=== PATIENT | male | born 1990 | race Two or more races ===

== ENCOUNTER 2021-09-25 08:38 | Outpatient (REF) | payer OTHER, SELFPAY ==
[2021-09-25 08:56] LABS: MANUAL DIFF FLAG NO
[2021-09-25 09:58] LABS: Basophils Percent Auto 0.5 % (0-2); Eosinophils Absolute Auto 0.2 X10*3/uL (0.0-0.4); Eosinophils Percent Auto 2.4 % (0-4); Hematocrit 43.7 % (42.0-52.0); Hemoglobin 14.5 g/dl (14.0-18.0); Imm Gran Abs Auto 0.04 X10*3/uL (0.00-0.03); Imm Gran Pct Auto 0.5 % (0.0-0.4); Lymphocytes Absolute Auto 3.5 X10*3/uL (1.2-4.9); Lymphocytes Percent Auto 44.5 % (20-40); Mean Corpuscular HGB Conc 33.2 g/dl (31.0-36.0); Mean Corpuscular Hemoglobin 30.3 pg (27.0-33.0); Mean Corpuscular Volume 91.4 fL (80.0-98.0); Mean Platelet Volume 9.8 fL (9.4-12.4); Monocytes Absolute Auto 0.7 X10*3/uL (0.1-1.2); Monocytes Percent Auto 9.4 % (2-11); Neutrophils Absolute Auto 3.4 x10*3/uL (2.0-8.3); Neutrophils Percent Auto 42.7 % (45-73); Platelet Count 239 X10*3/uL (160-400); Red Blood Count 4.78 X10*6/uL (4.60-5.80); Red Cell Distribution Width 11.9 % (11.0-16.0); White Blood Count 7.9 X10*3/uL (4.8-10.8)
[2021-09-25 10:34] LABS: Alanine Aminotransferase 54 U/L (0-40); Albumin Level 4.2 g/dL (3.5-5.0); Alkaline Phosphatase 114 U/L (39-117); Anion Gap 11 (12-20); Aspartate Amino Transferase 25 U/L (5-37); Bilirubin Total < 0.2 mg/dL (0.0-1.0); Blood Urea Nitrogen 19 mg/dL (9-16); Calcium 9.2 mg/dL (8.4-10.2); Carbon Dioxide 27 mmol/L (22-29); Chloride 108 mmol/L (96-108); Cholesterol 149 mg/dL; Estimated Glomerular Filt Rate > 60; Glucose Fasting 100 mg/dL (60-99); HDL Cholesterol 28 mg/dL; LDL Cholesterol Calculated 95 mg/dl; Potassium 4.9 mmol/L (3.3-5.1); Sodium 141 mmol/L (135-145); Total Protein 7.3 g/dL (6.5-8.0); Triglycerides 131 mg/dL
[2021-09-25 10:39] LABS: Syphilis Screen Nonreactive (Nonreactive)
[2021-09-25 10:55] LABS: HIV AB/AG Nonreactive (Nonreactive); HIV Num 1 0.09 S/CO (0.00-0.99); ~HepC Num1 0.18 S/CO (0.00-0.79); ~Hepatitis C Antibody Nonreactive (Nonreactive)
[2021-09-25 12:48] LABS: CT PCR NOT DETECTED (Not Detect.); NG PCR NOT DETECTED (Not Detect.)
== END 2021-09-25 08:39 | disposition home or self-care (01) ==
LOC: HO.LAB 08:38
PROVIDERS: PCP Nurse Practitioner Family; Visit Provider Nurse Practitioner Family
DX: Z11.4 Encounter for screening for human immunodeficiency virus [HIV] (principal); Z11.3 Encounter for screening for infections with a predominantly sexual mode of transmission; I10 Essential (primary) hypertension; E78.00 Pure hypercholesterolemia, unspecified; Z76.89 Persons encountering health services in other specified circumstances
CPT/HCPCS: 80053; 80061; 85025; 86780; 86803; 87389; 87491; 87591

== ENCOUNTER 2023-04-26 07:24 | Outpatient (AMB) | payer BC, MEDICAID, SELFPAY ==
[2023-04-26 07:31] VITALS: BP 118/70; PULSE 78; O2SAT 98; BMI 26.6
--- NOTE | 2023-04-26 07:31 | MHC.PC.OV ---
Vital Signs 04/26/23 07:31 Height 5 ft 9 in Weight 180 lb BMI 26.6 BP 118/70 Blood Pressure Location Lt brachial Position Sitting Pulse 78 Pulse Source Pulse Oximeter Pulse Oximetry (%) 98 Oxygen Delivery Method Room Air Intake Visit Reasons: Physical exam Allergies No Known Allergies Allergy (Verified 04/26/23 07:44) Medication List - Last Reconciled 04/26/23 by CARMENCITA Epps No Known Home Meds Tobacco use date assessed: 04/26/23 Dental Screening Dental Screen Date: 04/26/23 Did you have a dental visit in the last 12 months?: Yes Did you have a dental problem in the last 6 months where you did not have access to dental care?: No Was dental information given to patient?: Patient has dentist HPI HPI Comments History of Present Illness Details 32-year-old male past medical history significant for fatty liver. Patient last seen August 2021, reports today for physical exam. She presents today with his assisted in interpretation. Patient's reports that he tested positive for Chlamydia and the beginning of February and was treated at [facility] for this. Patient was advised to follow-up for test for cure, test for cure ordered in April for 3months following treatment, in addition to routine STI screenings. Patient denies any acute complaints. Eye exam: Patient recommended to have eye exam every couple years. Tdap given in 2016 [facility] Surgical History History of pterygium History of wisdom tooth extraction Family History Father Hypertension Gout Kidney stones Hernia Mother Osteoarthritis Hypertension Family/Other Substance use disorder Social History Housing: Apartment Alcohol intake: never Patient Tobacco Use Status: Never used Tobacco e-Cigarette/Vaping Use: Never Used Second Hand Smoke Exposure: No service: No Current occupational status: employed Current occupational exposures/hazards: No Cognitive needs: No Hearing needs: No Vision needs: No Questionnaire PHQ-9 Over the last 2 weeks, how often have you been bothered by any of the following problems? 1. Little interest or pleasure in doing things: not at all 2. Feeling down, depressed, or hopeless: not at all 3. Trouble falling or staying asleep, or sleeping too much: not at all 4. Feeling tired or having little energy: not at all 5. Poor appetite or overeating: not at all 6. Feeling bad about yourself - or that you are a failure or have let yourself or your family down: not at all 7. Trouble concentrating on things, such as reading the newspaper or watching television: not at all 8. Moving or speaking so slowly that other people could have noticed. Or the opposite - being so fidgety or restless that you have been moving around a lot more than usual: not at all 9. Thoughts that you would be better off or of hurting yourself in some way: not at all Total score: 0 Depression Screening Interpretation: Negative Source: Developed by Drs. Casper García, Cassi Murdock, Berry Castaneda and colleagues, with an educational axel from [employer]. Thrive Questionnaire Date Thrive assessed: 04/26/23 I am a: Patient What is your living situation today?: I have a steady place to live Within the past 12 months, did the food you bought not last and you didn't have the money to get more?: Never true Within the past 12 months, did you worry whether your food would run out before you got money to buy more?: Never true Do you have trouble paying for medicines?: No Do you have trouble getting transportation to medical appointments?: No Do you have trouble paying your heating and electricity bill?: No Do you have trouble taking care of your child, family member or friend?: No Do you have trouble with day-to-day activities such as bathing, preparing meals, shopping, managing finances, etc.?: No Are you currently unemployed and looking for a job?: No Are you interested in more education?: No Currently or been in a relationship where the following occur: no concerns reported AUDIT C Alcohol Use Questionnaire (AUDIT-C) 1. How often do you have a drink containing alcohol?: Never Total Score: 0 PRETTY-7 AMB Questionnaire PRETTY-7 Date PRETTY - 7 assessed: 04/26/23 Feeling nervous, anxious, or on edge: 0 = Not at all Not being able to stop or control worryin = Not at all Worrying too much about different things: 0 = Not at all Trouble relaxin = Not at all Being so restless that it is hard to sit still: 0 = Not at all Becoming easily annoyed or irritable: 0 = Not at all Feeling afraid as if something awful might happen: 0 = Not at all Total PRETTY-7 score (0-4 normal; 5-9 mild; 10-14 moderate; 15-21 severe): 0 Source: Developed by Drs. Casper García, Cassi Murdock, Berry Castaneda and colleagues, with an educational axel from [employer]. PRETTY-7 Assessment Billing PRETTY-7 Assessment Tool: PRETTY-7 Assessment 63731 Review of Systems Const Denies chills, Denies fatigue, Denies fever(s) and Denies poor appetite Eyes Denies no additional complaints ENT Reports Normal hearing present Card Denies chest pain, Denies syncope, Denies rapid heart rate and Denies dyspnea Resp Denies cough and Denies dyspnea GI Denies change in stool character, Denies constipation, Denies diarrhea, Denies nausea and Denies vomiting Denies dysuria, Denies urinary frequency and Denies urinary urgency Neuro Reports Normal hearing present, Denies confusion and Denies syncope Psych Denies confusion Endo Denies fatigue Physical exam (Primary Care) Vital Signs: Last Vital Signs Pulse 78 04/26/23 07:31 BP 118/70 04/26/23 07:31 Pulse Ox 98 04/26/23 07:31 Oxygen Delivery Method Room Air 04/26/23 07:31 BMI result Body Mass Index 26.6 Tobacco/Smoking Status: Tobacco use Status Tobacco use date assessed 04/26/23 04/26/23 07:34 Patient Tobacco Use Status Never used Tobacco 04/26/23 07:34 e-Cigarette/Vaping Use Never Used 04/26/23 07:34 PHQ-9: PHQ-9 Score PHQ-9: Total score 0 04/26/23 07:43 Depression Screening Interpretation: Negative Thrive Assessment: Date of Thrive Assessment Date Thrive assessed 04/26/23 04/26/23 07:34 Currently or been in a relationship where the following occur: no concerns reported Const General: No confusion Orientation/consciousness: No confusion HENMT Head: Yes normocephalic and Yes atraumatic Ears: external ears normal and TM's normal bilaterally General nose exam: Normal external nose present and Normal nasal mucous membranes and turbinates present Face and sinus: Yes normal facial exam and Yes sinuses nontender Mouth: moist mucous membranes Throat: Yes tonsils normal Eyes Conjunctivae: conjunctivae normal Sclerae: sclerae normal Pupils: Equal, round and reactive pupils present and Pupils normal by confrontation EOM: EOMs intact bilaterally Direct Ophthalmoscopy: normal light reflex Neck Neck: Yes no lymphadenopathy and Yes supple Thyroid: Thyroid normal Chest Chest palpation & inspection: normal inspection of the chest Resp Effort & Inspection: normal respiratory effort Auscultation: clear to auscultation bilaterally, no crackles, no rhonchi and no wheezes Cardio Rate: regular rate Rhythm: regular rhythm Peripheral pulses: radial pulses present and dorsalis pedis present GI Inspection: Yes normal to inspection Palpation (GI): Soft to palpation, nontender and No hepatosplenomegaly present Auscultation: normoactive bowel sounds Skin General skin exam: no rashes or lesions noted Neuro General: No confusion Cranial nerves: Yes Equal, round and reactive pupils present and Yes Normal hearing present Cognition (Neuro): normal cognition Gait exam (Neuro): Normal gait present Motor exam (neuro): 5/5 motor strength present throughout Deep tendon reflexes (DTR's): Right brachioradialis reflex intensity grade: 2+, Left brachioradialis reflex intensity grade: 2+, Right patellar reflex intensity grade: 2+ and Left patellar reflex intensity grade: 2+ Extrem General: No edema Assessment and Plan Assessment & Plan (1) Physical exam, annual: Code(s): Z00.00 - Encounter for general adult medical examination without abnormal findings Plan: Routine fasting labs ordered. (2) Chlamydia contact, treated: Code(s): Z20.2 - Contact with and (suspected) exposure to infections with a predominantly sexual mode of transmission Plan: Patient advised to get labs for test for care in April. (3) Routine screening for STI (sexually transmitted infection): Code(s): Z11.3 - Encounter for screening for infections with a predominantly sexual mode of transmission Plan Follow up in 1 year for PE or sooner if needed. Orders: Orders Comprehensive [place]. Panel Fast Today Z13.1 - Encounter for screening for diabetes mellitus Lipid Panel Today Z13.220 - Encounter for screening for lipoid disorders TSH reflex Free T4 Today Z13.29 - Encounter for screening for other suspected endocrine disorder Hepatitis B,C Profile Today Z11.3 - Encounter for screening for infections with a predominantly sexual mode of transmission HIV Ab/Ag Today Z11.3 - Encounter for screening for infections with a predominantly sexual mode of transmission Syphilis Screen Today Z11.3 - Encounter for screening for infections with a predominantly sexual mode of transmission CT NG by PCR Today Z20.2 - Contact with and (suspected) exposure to infections with a predominantly sexual mode of transmission Coding Level of Care Code Est Pt Prev Care 18-39y(82704) Diagnoses Physical exam, annual Z00.00 Chlamydia contact, treated Z20.2 Routine screening for STI (sexually transmitted infection) Z11.3 Additional Codes PRETTY-7 Assessment Billing - PRETTY-7 Assessment Tool: PRETTY-7 Assessment 14900 ([id number]) PHQ-9 - 72253 - PHQ-9 Billing: Y ([id number])
== END 2023-04-26 07:49 | disposition home or self-care (01) ==
PROVIDERS: PCP Nurse Practitioner Family; Visit Provider Nurse Practitioner Family
DX: Z00.00 Encounter for general adult medical examination without abnormal findings (principal); Z20.2 Contact with and (suspected) exposure to infections with a predominantly sexual mode of transmission; Z11.3 Encounter for screening for infections with a predominantly sexual mode of transmission
CPT/HCPCS: 99395

== ENCOUNTER 2024-07-15 15:54 | Outpatient (AMB) | payer BC, SELFPAY ==
[2024-07-15 15:56] VITALS: BP 122/80; PULSE 74; O2SAT 97; BMI 27.5
--- NOTE | 2024-07-15 15:56 | MHC.PC.OV ---
Vital Signs 07/15/24 15:56 Height 5 ft 9 in Weight 186 lb BMI 27.5 BP 122/80 Blood Pressure Location Lt brachial Position Sitting Pulse 74 Pulse Source Pulse Oximeter Pulse Oximetry (%) 97 Oxygen Delivery Method Room Air Intake Visit Reasons: TOS/ Annual physical Alumni Relations Officer Required: No Allergies No Known Allergies Allergy (Verified 07/15/24 16:05) Medication List - Last Reconciled 07/15/24 by Rachel Williamson PA-C No Known Home Meds Tobacco use date assessed: 07/15/24 Dental Screening Dental Screen Date: 07/15/24 Did you have a dental visit in the last 12 months?: No Did you have a dental problem in the last 6 months where you did not have access to dental care?: No HPI TOS/ Annual physical HPI Details 33-year-old male with past medical history of fatty liver disease last seen by nurse practitioner March 2023 coming in for annual exam. Patient presents today with his spouse who interprets for the duration of the visit. He would like to undergo STD testing and does have 1 concern today. Mentions having 2-3 warts above the genital area as well as burning with urination. The warts have been present for several months possibly years are not red or painful and are flesh-colored. The burning with urination began on Saturday. Denies any blood in the urine or fevers. [facility] Surgical History History of pterygium History of wisdom tooth extraction Family History (Updated 07/15/24 @ 16:06 by Rachel Williamson PA-C) Father Hypertension Gout Kidney stones Hernia Mother Osteoarthritis Hypertension Family/Other Substance use disorder Paternal Grandmother Cancer Social History Housing: Apartment Alcohol intake: never Patient Tobacco Use Status: Never used Tobacco e-Cigarette/Vaping Use: Never Used Second Hand Smoke Exposure: No service: No Current occupational status: employed Current occupational exposures/hazards: No Cognitive needs: No Hearing needs: No Vision needs: No Questionnaire PHQ-9 Over the last 2 weeks, how often have you been bothered by any of the following problems? 1. Little interest or pleasure in doing things: not at all 2. Feeling down, depressed, or hopeless: not at all 3. Trouble falling or staying asleep, or sleeping too much: not at all 4. Feeling tired or having little energy: not at all 5. Poor appetite or overeating: not at all 6. Feeling bad about yourself - or that you are a failure or have let yourself or your family down: not at all 7. Trouble concentrating on things, such as reading the newspaper or watching television: not at all 8. Moving or speaking so slowly that other people could have noticed. Or the opposite - being so fidgety or restless that you have been moving around a lot more than usual: not at all 9. Thoughts that you would be better off or of hurting yourself in some way: not at all Total score: 0 Depression Screening Interpretation: Negative Depression Screening Done: Yes Source: Developed by Drs. Casper García, Cassi Murdock, Berry Castaneda and colleagues, with an educational axel from [employer]. Thrive Questionnaire Date Thrive assessed: 07/14/24 I am a: Patient What is your living situation today?: I have a steady place to live Within the past 12 months, did the food you bought not last and you didn't have the money to get more?: Never true Within the past 12 months, did you worry whether your food would run out before you got money to buy more?: Never true Do you have trouble paying for medicines?: No Do you have trouble getting transportation to medical appointments?: No Do you have trouble paying your heating and electricity bill?: No Do you have trouble taking care of your child, family member or friend?: No Do you have trouble with day-to-day activities such as bathing, preparing meals, shopping, managing finances, etc.?: No Are you currently unemployed and looking for a job?: No Are you interested in more education?: No Please select the resources that you would like help with: None Currently or been in a relationship where the following occur: I choose not to answer THRIVE Score: 0 AUDIT C Alcohol Use Questionnaire (AUDIT-C) 1. How often do you have a drink containing alcohol?: Never 2. How many drinks containing alcohol do you have on a typical day when you are drinking?: 1 or 2 3. How often do you have six or more drinks on one occasion?: Never Total Score: 0 PRETTY-7 AMB Questionnaire PRETTY-7 Date PRETTY - 7 assessed: 07/15/24 Feeling nervous, anxious, or on edge: 0 = Not at all Not being able to stop or control worryin = Not at all Worrying too much about different things: 0 = Not at all Trouble relaxin = Not at all Being so restless that it is hard to sit still: 0 = Not at all Becoming easily annoyed or irritable: 0 = Not at all Feeling afraid as if something awful might happen: 0 = Not at all Total PRETTY-7 score (0-4 normal; 5-9 mild; 10-14 moderate; 15-21 severe): 0 Source: Developed by Drs. Casper García, Cassi Murdock, Berry Castaneda and colleagues, with an educational axel from [employer]. PRETTY-7 Assessment Billing PRETTY-7 Assessment Tool: PRETTY-7 Assessment 67944 Review of Systems Const Denies body aches, Denies fatigue, Denies fever(s), Denies frequent falls, Denies headache(s) and Denies weakness Eyes Reports no additional complaints and Denies change in vision ENT Denies dysphagia, Denies dizziness, Denies facial pain, Denies headache(s), Denies nasal congestion and Denies odynophagia Card Denies chest pain, Denies syncope, Denies irregular heart rhythm, Denies leg edema, Denies lightheadedness and Denies dyspnea Resp Denies cough and Denies dyspnea GI Denies abdominal pain, Denies constipation, Denies dysphagia, Denies dyspepsia, Denies diarrhea, Denies nausea, Denies odynophagia and Denies vomiting Denies hematuria, Reports dysuria, Reports urinary frequency and Denies urinary urgency Musc Denies back pain and Denies myalgias Skin/Breast Reports system reviewed and no additional complaints, except as documented Neuro Denies dizziness, Denies syncope, Denies frequent falls, Denies headache(s) and Denies weakness Psych Reports no additional complaints Endo Denies fatigue Physical exam (Primary Care) Vital Signs: Oxygen Delivery Method Room Air 07/15/24 15:56 Tobacco/Smoking Status: Tobacco use Status Tobacco use date assessed 04/26/23 04/26/23 07:34 Patient Tobacco Use Status Never used Tobacco 04/26/23 07:34 e-Cigarette/Vaping Use Never Used 04/26/23 07:34 Depression Screening Interpretation: Negative Thrive Assessment: Date of Thrive Assessment Date Thrive assessed 07/14/24 07/14/24 10:37 Currently or been in a relationship where the following occur: I choose not to answer Const General: cooperative, healthy appearing, comfortable and no acute distress Orientation/consciousness: patient oriented x3 HENMT Head: Yes normocephalic Ears: hearing grossly normal bilaterally, external ears normal, TM's normal bilaterally and EAC's normal General nose exam: Normal external nose present Face and sinus: Yes normal facial exam and Yes sinuses nontender Mouth: Normal oral and palatal mucosa present and tongue normal Throat: Yes posterior oropharynx normal Eyes General: appearance normal, both eyes and all related structures Conjunctivae: conjunctivae normal Pupils: Equal, round and reactive pupils present EOM: EOMs intact bilaterally and No Nystagmus present Neck Neck: Yes normal visual inspection, Yes full ROM and Yes no lymphadenopathy Chest Chest palpation & inspection: normal inspection of the chest Resp Effort & Inspection: normal respiratory effort Auscultation: clear to auscultation bilaterally, no crackles, no rales, no rhonchi, no wheezes and breath sounds present Cardio Rate: regular rate Rhythm: regular rhythm Peripheral pulses: radial pulses present and dorsalis pedis present GI Inspection: Yes normal to inspection and No Abdominal wall edema Palpation (GI): Soft to palpation, not firm and nontender Auscultation: normal bowel sounds Rectal Exam - Male: Yes deferred General: Yes no CVA tenderness Back/Spine/Pelvis Back: no CVA tenderness Skin Other: 4-5 small, round, flesh-colored lesions in the suprapubic area varying in size. Lesions do not appear infected and are not painful Neuro General: patient oriented x3 Cranial nerves: Yes Equal, round and reactive pupils present, Yes Midline tongue present, Yes Ability to bilaterally elevate shoulders present and No Nystagmus present Gait exam (Neuro): Normal gait present Extrem General: Yes normal to inspection, Yes full ROM, No no pedal edema and No edema Psych Speech and movement: Normal speech and movement present Affect: normal affect Insight: Good insight present (Psych) Judgement: Good judgement present (Psych) Coding Level of Care Code Est Pt Level 3 (03915) Est Pt Prev Care 18-39y(36778) Diagnoses LFT elevation R79.89 Annual physical exam Z00.00 Dysuria R30.0 Warts B07.9 Additional Codes PRETTY-7 Assessment Billing - PRETTY-7 Assessment Tool: PRETTY-7 Assessment 22396 ([id number]) Assessment & Plan Assessment & Plan (1) LFT elevation: Code(s): R79.89 - Other specified abnormal findings of blood chemistry Category: Medical Plan: LFTs elevated on last blood work ordered for updated blood work for further evaluation. If LFTs are elevated once again can consider abdominal ultrasound for further investigation. (2) Annual physical exam: Code(s): Z00.00 - Encounter for general adult medical examination without abnormal findings Category: Medical Plan: Patient is up-to-date on all recommended routine screenings and vaccinations for his age. Updated blood work ordered. Follow up in 1 year or sooner pending blood work results or if new problems arise. (3) Dysuria: Code(s): R30.0 - Dysuria Category: Medical Plan: Ordered for STD testing as well as urinalysis with culture for further evaluation. Advised to drink plenty of water. (4) Warts: Code(s): B07.9 - Viral wart, unspecified Category: Medical Plan: Patient has 4-5 warts in the suprapubic area that are not painful, do not bleed and are not red. He has tried [id number] remedies for this with some improvement. Referral placed for Dermatology for removal of the warts. Plan This note was constructed using voice recognition software. While every effort has been made to ensure accuracy and property management accountant, still areas may have been included sometimes these areas may affect the content or meeting of the given symptoms. Total time spent caring for the patient today was 30 minutes. This includes time spent before the visit reviewing the chart, time spent during the visit, and time spent after the visit and documentation. Orders: Orders Complete Blood Count Auto Diff Today Z00.00 - Encounter for general adult medical examination without abnormal findings Lipid Panel Today Z00.00 - Encounter for general adult medical examination without abnormal findings TSH reflex Free T4 Today Z00.00 - Encounter for general adult medical examination without abnormal findings Vitamin D 25-OH (D2 and D3) Today Z00.00 - Encounter for general adult medical examination without abnormal findings UA CC w/rflx Micro + Cult Today R30.0 - Dysuria, R35.89 - Other polyuria Comprehensive Met. Panel Today Z00.00 - Encounter for general adult medical examination without abnormal findings Vitamin B12 and Folate Today Z00.00 - Encounter for general adult medical examination without abnormal findings CT NG by PCR Today Z00.00 - Encounter for general adult medical examination without abnormal findings Hepatitis B,C Profile Today Z11.3 - Encounter for screening for infections with a predominantly sexual mode of transmission HIV Ab/Ag Today Z11.3 - Encounter for screening for infections with a predominantly sexual mode of transmission Syphilis Screen Today B07.9 - Viral wart, unspecified Referrals Dermatology Referral B07.9 - Viral wart, unspecified Vital Signs 07/15/24 15:56 Height 5 ft 9 in Weight 186 lb BMI 27.5 Pulse 74 Pulse Source Pulse Oximeter BP 122/80 Position Sitting Pulse Oximetry (%) 97
== END 2024-07-15 16:28 | disposition home or self-care (01) ==
DX: Z00.00 Encounter for general adult medical examination without abnormal findings (principal); R30.0 Dysuria; R79.89 Other specified abnormal findings of blood chemistry; B07.9 Viral wart, unspecified

== ENCOUNTER → 2024-07-15 15:54 | Outpatient (BNVA) | payer BC, SELFPAY | LOC: CF 16:54 | DX: Z00.01 Encounter for general adult medical examination with abnormal findings (principal); R30.0 Dysuria; B07.9 Viral wart, unspecified; R79.89 Other specified abnormal findings of blood chemistry | CPT/HCPCS: 96127 ==

== ENCOUNTER 2024-07-16 06:05 | Outpatient (REF) | payer BC, SELFPAY ==
[2024-07-16 06:22] LABS: MANUAL DIFF FLAG NO
[2024-07-16 07:38] LABS: Basophils Absolute Auto 0.1 X10*3/uL (0.0-0.2); Basophils Percent Auto 0.7 % (0-2); Eosinophils Absolute Auto 0.6 X10*3/uL (0.0-0.4); Eosinophils Percent Auto 6.4 % (0-4); Hematocrit 46.2 % (42.0-52.0); Hemoglobin 15.5 g/dl (14.0-18.0); Imm Gran Abs Auto 0.07 X10*3/uL (0.00-0.03); Imm Gran Pct Auto 0.8 % (0.0-0.4); Lymphocytes Absolute Auto 2.6 X10*3/uL (1.2-4.9); Lymphocytes Percent Auto 28.9 % (20-40); Mean Corpuscular HGB Conc 33.5 g/dl (31.0-36.0); Mean Corpuscular Hemoglobin 30.8 pg (27.0-33.0); Mean Corpuscular Volume 91.8 fL (80.0-98.0); Mean Platelet Volume 9.7 fL (9.4-12.4); Monocytes Percent Auto 11.3 % (2-11); Neutrophils Absolute Auto 4.6 x10*3/uL (2.0-8.3); Neutrophils Percent Auto 51.9 % (45-73); Platelet Count 302 X10*3/uL (160-400); Red Blood Count 5.03 X10*6/uL (4.60-5.80); Red Cell Distribution Width 12.5 % (11.0-16.0); White Blood Count 8.9 X10*3/uL (4.8-10.8)
[2024-07-16 07:40] LABS: Appearance Urine Clear; Color Urine Yellow; Glucose Urine UA Negative (Negative); Leukocyte Esterase Urine Negative (Negative); Nitrite Urine Negative (Negative); PH 5.5 (5.0-9.0); Specific Gravity - Urine >= 1.030 (1.005-1.025); Urine Blood Negative (Negative); Urine Ketones Negative (Negative); Urine Protein Negative (Neg-Trace)
[2024-07-16 08:18] LABS: Alanine Aminotransferase 47 U/L (0-40); Albumin Level 4.4 g/dL (3.5-5.0); Alkaline Phosphatase 125 U/L (39-117); Anion Gap 11 (12-20); Aspartate Amino Transferase 24 U/L (5-37); Bilirubin Total 0.3 mg/dL (0.0-1.0); Blood Urea Nitrogen 19 mg/dL (9-16); Calcium 9.1 mg/dL (8.4-10.2); Carbon Dioxide 27 mmol/L (22-29); Chloride 109 mmol/L (96-108); Cholesterol 154 mg/dL (<200); Estimated Glomerular Filt Rate > 60; Glucose Random 101 mg/dL (60-115); HDL Cholesterol 31 mg/dL (>40); LDL Cholesterol Calculated 105 mg/dL (<100); Potassium 4.2 mmol/L (3.3-5.1); Sodium 143 mmol/L (135-145); Total Protein 7.6 g/dL (6.5-8.0); Triglycerides 93 mg/dL (<150)
[2024-07-16 08:36] LABS: TSH reflex Free T4 2.24 uIU/mL (0.32-4.0)
[2024-07-16 08:42] LABS: Folate 9.1 ng/mL (> or = 4.0); Vitamin B12 445 pg/mL (200-900)
[2024-07-16 08:52] LABS: HBS Num1 6.69 mIU/mL (0-7.99); HBc Num1 0.08 S/CO (0.00-0.79); HBsAGNum1 0.47 S/CO (0.00-0.99); HIV AB/AG Nonreactive (Nonreactive); HIV Num 1 0.06 S/CO (0.00-0.99); Hepatitis B Core Antibody Nonreactive (Nonreactive); Hepatitis B Surface Antigen Negative (Negative); ~HepC Num1 0.09 S/CO (0.00-0.79); ~Hepatitis B Surface Antibody NONREACTIVE (Nonreactive); ~Hepatitis C Antibody Nonreactive (Nonreactive)
[2024-07-16 08:53] LABS: Syphilis Screen Nonreactive (Nonreactive)
[2024-07-16 11:01] LABS: CT PCR NOT DETECTED (Not Detect.); NG PCR NOT DETECTED (Not Detect.)
[2024-07-21 15:38] LABS: Vitamin D 25-OH, D2 <4 ng/mL; Vitamin D 25-OH, D3 18 ng/mL; Vitamin D 25-OH, Total 18 ng/mL (30-100)
== END 2024-07-16 06:06 | disposition home or self-care (01) ==
LOC: HO.LAB 06:05
DX: Z00.00 Encounter for general adult medical examination without abnormal findings (principal); B07.9 Viral wart, unspecified; R35.89 Other polyuria; R30.0 Dysuria; Z11.3 Encounter for screening for infections with a predominantly sexual mode of transmission
CPT/HCPCS: 80053; 80061; 81003; 82306; 82607; 82746; 84443; 85025; 86704; 86706; 86780; 86803; 87340; 87389; 87491; 87591

== ENCOUNTER 2024-07-30 07:56 | Outpatient (REF) | payer BC, SELFPAY ==
--- NOTE | ~2024-07-30 | US_ITS ---
EXAMINATION: US ABDOMEN COMPLETE CLINICAL INFORMATION: Other specified abnormal findings of blood chemistry. COMPARISON: None available. TECHNIQUE: Real-time imaging of the abdominal viscera. FINDINGS: PANCREAS: Normal. ABDOMINAL AORTA: The proximal, mid, and distal segments are normal in caliber. INFERIOR VENA CAVA: Visualized portions are normal. LIVER: Normal. The liver is normal in size. The liver contour is normal. Parenchymal echogenicity is normal. No focal hepatic lesion. There is no intrahepatic biliary duct dilatation seen. GALLBLADDER: Normal. The gallbladder is physiologically distended without evidence of stones, sludge, polyps, wall thickening or pericholecystic fluid. COMMON BILE DUCT: Normal in caliber measuring 0.2 cm in diameter. RIGHT KIDNEY: Normal. No hydronephrosis. No renal calculi or focal parenchymal lesions. The kidney measures 11.7 cm in maximum dimension. LEFT KIDNEY: Normal. No hydronephrosis. No renal calculi or focal parenchymal lesions. The kidney measures 12.5 cm in maximum dimension. SPLEEN: Normal. The spleen measures 9.4 cm in maximum dimension. FREE FLUID: None. US/US abdomen complete IMPRESSION: Unremarkable examination. Electronically signed by: Ricky Shepherd MD 08/11/2024 05:02 PM [facility]
== END 2024-07-30 07:57 | disposition home or self-care (01) ==
LOC: HO.US 07:56
DX: R79.89 Other specified abnormal findings of blood chemistry (principal)
CPT/HCPCS: 76700

== ENCOUNTER 2024-12-08 08:47 | Outpatient (AMB) | payer BC, MEDICAID, SELFPAY ==
--- NOTE | 2024-12-08 08:58 | A.OFFVIS_ITS ---
Intake Visit Reasons: erectile dysfunction Intake Note: New patient presents today for initial visit for erectile dysfunction Urology Medication:none Blood Thinner:none Antibiotic Allergies:none Allergies No Known Allergies Allergy (Verified 12/08/24 09:40) Medication List - Last Reconciled 12/08/24 by JHONNY Kohli No Known Home Meds HPI Comments Details: Jaime is a very pleasant 34-year-old Hungarian-speaking male patient of Dr. Williamson who was accompanied by his at today's office visit and is requesting translation provided through his . He presents to the office today as a new patient for erectile dysfunction. In discussion with the patient today he reports noting symptoms started approximately 5 months ago after initiation of steroids. He discusses having attempted steroids for 3 weeks from a friend and shortly after discontinuation of steroids he noticed erectile dysfunction. He is able to obtain an erection however feels at times it is difficult to maintain his erections. He otherwise denies any bothersome urinary issues. He reports following up with his PCP and discussing this issue at which time recommendations were made for urology referral for further assessment evaluation. He also discusses having had an episode of penile discharge a few months ago however followed up with his PCP and has not had any other issues with penile discharge. He denies urinary urgency, urinary frequency, incontinence, nocturia, hematuria, dysuria, foul smelling urine, changes to urinary stream, flank pain, fever, and or chills. He is happy with his current voiding parameters. In office urinalysis results reviewed with the patient today. We discussed at length anabolic steroid use and potential causes and affects of this disorder/condition. He otherwise denies any previous trauma. [facility] Surgical History History of pterygium History of wisdom tooth extraction Family History Father Hypertension Gout Kidney stones Hernia Mother Osteoarthritis Hypertension Family/Other Substance use disorder Paternal Grandmother Cancer Social History Housing: Apartment Alcohol intake: never Patient Tobacco Use Status: Never used Tobacco e-Cigarette/Vaping Use: Never Used Second Hand Smoke Exposure: No service: No Current occupational status: employed Current occupational exposures/hazards: No Cognitive needs: No Hearing needs: No Vision needs: No Review of Systems Const All systems reviewed & are unremarkable except as noted in HPI and below Physical Exam Const General: cooperative, healthy appearing, comfortable, no acute distress, well developed, alert and awake Orientation/consciousness: patient oriented x3 Limitations: no limitations HEENT Head: Yes normal to inspection, Yes normocephalic and Yes atraumatic Ears: hearing grossly normal bilaterally Eyes General: appearance normal, both eyes and all related structures Neck Neck: Yes normal visual inspection and Yes trachea midline Chest Chest palpation & inspection: normal inspection of the chest Resp Effort & Inspection: normal respiratory effort and able to speak in complete sentences Cardio Rate: regular rate GI Inspection: Yes normal to inspection General: Yes no CVA tenderness Back/Spine/Pelvis Back: no CVA tenderness Skin General skin exam: no rashes or lesions noted Neuro General: patient oriented x3 Extrem General: Yes normal to inspection Psych Appearance: grossly normal and well kempt Mental Status: mental status grossly normal Speech and movement: Normal speech and movement present and Clear speech present Affect: normal affect Attitude: cooperative Thought process: Normal thought process present Thought content: Normal thought content present Insight: Fair insight present (Psych) Judgement: Fair judgement present (Psych) Results AMB Urinalysis, Automated UA Leukoctes 0 Meghan/uL Last Edit by Maria Esther Ackerman on 12/08/24 09:32 UA Nitrite Negative Last Edit by Maria Esther Ackerman on 12/08/24 09:32 UA Urobilinogen 3.5 mg/dL Last Edit by Maria Esther Ackerman on 12/08/24 09:32 UA Protein 1 mg/dL Last Edit by Maria Esther Ackerman on 12/08/24 09:32 UA pH 5.5 Last Edit by Maria Esther Ackerman on 12/08/24 09:32 UA Blood 0 Darius/uL Last Edit by Maria Esther Ackerman on 12/08/24 09:32 UA Specific [place] 1.030 Last Edit by Maria Esther Ackerman on 12/08/24 09:32 UA Ketone Negative Last Edit by Maria Esther Ackerman on 12/08/24 09:32 UA Bilirubin 0 mg/dL Last Edit by Maria Esther Ackerman on 12/08/24 09:32 UA Glucose 0 mg/dL Last Edit by Maria Esther Ackerman on 12/08/24 09:32 Results Reviewed Results Reviewed: Laboratory Last Values Urine pH (Auto) 5.5 12/08/24 09:29 Specific [place] (Auto) 1.030 12/08/24 09:29 Urine Protein (Auto) 1 mg/dL 12/08/24 09:29 Glucose (UA)(Auto) 0 mg/dL 12/08/24 09:29 Urine Ketones (Auto) Negative 12/08/24 09:29 Urine Blood (Auto) 0 Darius/uL 12/08/24 09:29 Urine Nitrite (Auto) Negative 12/08/24 09:29 Urine Bilirubin (Auto) 0 mg/dL 12/08/24 09:29 Urine Urobilinogen (Auto) 3.5 mg/dL 12/08/24 09:29 Leukocyte Esterase (Auto) 0 Meghan/uL 12/08/24 09:29 Assessment & Plan Assessment & Plan (1) Erectile dysfunction: Code(s): N52.9 - Male erectile dysfunction, unspecified Category: Medical Plan In office urinalysis results reviewed with the patient today; as noted above. We discussed at length anabolic steroid use; causes and affects. All questions were answered. Patient currently denies any bothersome urinary issues. Reports be happy with current voiding parameters. Start Cialis as discussed and prescribed. Prescription provided for p.r.n. dosing. Will obtain LH, SHBG, estradiol, prolactin, testosterone free and total, and FSH for further assessment evaluation. Follow-up in 1-3 months with labs to be completed prior; or sooner with any issues, concerns, and or questions. Orders: Orders Lutenizing Hormone Today N52.9 - Male erectile dysfunction, unspecified Sex Hormone Binding Globulin Today E29.1 - Testicular hypofunction, N52.9 - Male erectile dysfunction, unspecified Estradiol Ultra Sensitive Today E29.1 - Testicular hypofunction, N52.9 - Male erectile dysfunction, unspecified Prolactin Today E29.1 - Testicular hypofunction, N52.9 - Male erectile dysfunction, unspecified AMB Urinalysis Automated Today Z13.9 - Encounter for screening, unspecified Testosterone, Free/Total Today N52.9 - Male erectile dysfunction, unspecified Follicle Stimulating Hormone Today E29.1 - Testicular hypofunction, N52.9 - Male erectile dysfunction, unspecified Medications: New tadalafil (Cialis) [id number] [facility] [id number] Member [id number] 5 mg PO DAILY 90 days 90 tabs 0RF N52.9 - Male erectile dysfunction, unspecified tadalafil (Cialis) administer approximately 30-60 min before sexual activity; do not use more than 1 dose per 24hrs and not exceed more than 3 times per week [id number] [facility] [id number] Member [id number] 10 mg PO DAILY 30 days PRN 14 tabs 3RF sexual activity N52.9 - Male erectile dysfunction, unspecified Patient Instructions: The patient had an opportunity to ask questions regarding the treatment plan. All questions were answered. Physical exam, labs, and imaging were discussed and reviewed in detail. As well as risks, benefits, and discussion of treatment choices. No major barriers to understanding were identified. The patient expressed understanding and agreement with the above treatment plan. The patient was made aware they should contact our office by phone for worsening of their current condition, the appearance of new symptoms, or with any questions or concerns. Compliance is encouraged with any medications and follow up testing that is ordered. It is a privilege to be allowed the opportunity to participate in? your urological care.? Again, if you have any questions or concerns If you have any questions or concerns please do not hesitate to contact me. The office is [phone]. This note is constructed using voice recognition software. While every effort has been made to ensure accuracy dock clerk errors may have been included. Yours sincerely, JHONNY Kohli Coding Level of Care Code New Pt Level 4 (90024) Diagnoses Erectile dysfunction N52.9
--- OUTSIDE RECORDS SUMMARY | 2024-12-08 09:42 | XMS_ITS | Data Portability ---
Author Organization CAITLIN Kimbrough [facility], [address] Address [address] [place] [address] Assessment No assessment recorded. Plan of Treatment Reminders Order Date Submit Date Provider Last Modified By Organization Details Last Modified Time Details Appointments None recorded. Lab urinalysis, dipstick 2022 023 [email or web address] [facility], [address] [place] [address], [id number], 19:58:07 chlamydia trachomatis + neisseria gonorrhoeae + trichomonas vaginalis DNA panel, ANN+probe, unspecified specimen 2022 023 [facility], [address] [place] [address], [place], [address], 10:06:55 Referral None recorded. Procedures None recorded. Surgeries None recorded. Imaging None recorded. Medication Orders ceftriaxone 250 mg solution for injection 2022 023 [email or web address] Not available 19:58:07 doxycycline monohydrate 100 mg tablet 2022 023 [email or web address] [id number], [address] [facility], [place], [address], 19:58:07 Patient TargetsNo targets recorded. Patient Instructions Encounter Date Encounter Id Patient Instructions Last Modified By Organization Details Last Modified Time 03/01/2023 [id number] If your doctor prescribed antibiotics, take them as directed. Do not stop taking them just because you feel better. You need to take the full course of antibiotics. Take an bopb-nxh-tcvswbb pain medicine, such as acetaminophen (Tylenol), ibuprofen (Advil, Motrin), or naproxen (Aleve), if needed. Be safe with medicines. Read and follow all instructions on the label. Do not take two or more pain medicines at the same time unless the doctor told you to. Many pain medicines have acetaminophen, which is Tylenol. Too much acetaminophen (Tylenol) can be harmful. Do not have sex until you are done with treatment. If you do have sex, be sure to use a condom. Your sex partner or partners should be tested too if your urethritis was caused by an STI. If your infection was caused by an injury or chemicals, avoid those things if you can. Follow-up with Primary care provider in 2 weeks for a recheck, or sooner for concerns. Go to Emergency room for - You can't urinate. - You have symptoms of a urinary infection. For example: - You have blood or pus in your urine. - You have pain in your back just below your rib cage. This is called flank pain. - You have a fever, chills, or body aches. - It hurts to urinate. -You have groin or belly pain. -You have a hard time urinating when your bladder is full. -You notice mental changes or feel confused. [email or web address] Not available 03/01/2023 19:34:29 Reason for Referral None Reported. Results Created Date Observation Date Name Description Value Unit Range Abnormal Flag Note LastModifiedBy Organization Detail LastModifiedTime 03/01/2003/05/2023 CT, NG, TRICH VAG BY ANN chlamydia by ANN POSITI VE negati ve abnormal Not Available [facility] ([facility]) [address] [place], [address], 03/05/2023 10:06:55 03/01/20 23 03/05/2023 CT, NG, TRICH VAG BY ANN gonococcus by ANN NEGATI VE negati ve Not Available [facility] ([facility]) [address] [place], [address], 03/05/2023 10:06:55 03/01/20 23 03/05/2023 CT, NG, TRICH VAG BY ANN trich vag by ANN NEGATI VE negati ve Not Available [facility] ([facility]) [address] [facility], [place], [address], 03/05/2023 10:06:55 03/01/2003/01/2023 urina lysis , dipst ick Unknown Analyte Normal = light yellow Not Available [address], [place], [address], 03/01/2023 19:37:31 03/01/2003/01/2023 urina lysis , dipst ick Unknown Analyte Normal = clear Not Available [address] [place] [address], [place], [address], 03/01/2023 19:37:31 03/01/20 23 03/01/2023 urina lysis , dipst ick Unknown Analyte Normal = negati ve Not Available [address] [place] [address], [place], [address], 03/01/2023 19:37:31 03/01/2003/01/2023 urina lysis , dipst ick Unknown Analyte Normal = Negati ve Not Available [address] [place] [address], [place], [address], 03/01/2023 19:37:31 03/01/2003/01/2023 urina lysis , dipst ick Unknown Analyte Normal = Negati ve Not Available [address] [place] [address], [place], [address], 03/01/2023 19:37:31 03/01/2003/01/2023 urina lysis , dipst ick Unknown Analyte Normal = 1.010, 1.015, 1.020 Not Available [address] [place] [address], [place], [place], [address], 03/01/2023 19:37:31 03/01/20 23 03/01/2023 urina lysis , dipst ick Unknown Analyte Normal = Negati ve Not Available [address], [place], [address], 03/01/2023 19:37:31 03/01/20 23 03/01/2023 urina lysis , dipst ick Unknown Analyte Normal = 6.5, 7.0, 7.5, 8.0 Not Available [address], [place], [address], 03/01/2023 19:37:31 03/01/2003/01/2023 urina lysis , dipst ick Unknown Analyte Normal = Negati ve Not Available [facility] [address], [place], [address], 03/01/2023 19:37:31 03/01/20 23 03/01/2023 urina lysis , dipst ick Unknown Analyte Normal = 0.2, 1.0 Not Available [address], [place], [address], 03/01/2023 19:37:31 03/01/20 23 03/01/2023 urina lysis , dipst ick Unknown Analyte Normal = Negati ve Not Available [address], [place], [address], 03/01/2023 19:37:31 03/01/20 23 03/01/2023 urina lysis , dipst ick Unknown Analyte Normal = Negati ve Not Available [facility] [address], [place], [address], 03/01/2023 19:37:31 03/01/20 23 03/01/2023 urina lysis , dipst ick Unknown Analyte Light Yellow Not Available [address], [place], [address], 03/01/2023 19:37:31 03/01/2003/01/2023 urina lysis , dipst ick Unknown Analyte Clear Not Available [facility] [address], [place], [address], 03/01/2023 19:37:31 03/01/20 23 03/01/2023 urina lysis , dipst ick Unknown Analyte Negati ve Not Available jamil stone [address], [place], [address], 03/01/2023 19:37:31 03/01/20 23 03/01/2023 urina lysis , dipst ick Unknown Analyte Negati ve Not Available jamil stone [address], [place], [address], 03/01/2023 19:37:31 03/01/20 23 03/01/2023 urina lysis , dipst ick Unknown Analyte Trace- lysed Not Available jamil stone [address], [place], [address], 03/01/2023 19:37:31 03/01/20 23 03/01/2023 urina lysis , dipst ick Unknown Analyte Negati ve Not Available jamil stone [address], [place], [address], 03/01/2023 19:37:31 03/01/20 23 03/01/2023 urina lysis , dipst ick Unknown Analyte 0.2 E.U./d L Not Available jamil stone [address], [place], [address], 03/01/2023 19:37:31 03/01/20 23 03/01/2023 urina lysis , dipst ick Unknown Analyte Negati ve Not Available jamil stone [address] [place], [address], 03/01/2023 19:37:31 03/01/2003/01/2023 urina lysis , dipst ick Unknown Analyte Negati ve Not Available [address] [place], [address], 03/01/2023 19:37:31 03/01/20 23 03/01/2023 urina lysis , dipst ick Unknown Analyte 1.025 Not Available [address] [place], [address], 03/01/2023 19:37:31 03/01/2003/01/2023 urina lysis , dipst ick Unknown Analyte 5.5 Not Available [address] [place], [address], 03/01/2023 19:37:31 Result Notes None recorded. Problems No Known Problems Procedures Surgical History Date Name Laterality Status Provider Name and Address Organization Details Recorded Time procedure on eye completed JEY PADILLA PA - [facility] 03/01/2023 18:43:55 Imaging Results None recorded. Procedure Notes None recorded. Medical Equipment None Reported. Allergies No known drug allergies Medications Name Sig Start Date Stop Date Status Note LastModified by Organization Details LastModified Time ceftriaxon e 250 mg solution for injection Take 500 mg every day by injection route as directed for 1 day. 2022 active administe red by Navdeep Vilalrreal NP-C. SCKAMI. Not Available Not Available Not Available doxycyclin e monohydrat e 100 mg tablet TAKE 1 TABLET BY MOUTH TWICE A DAY WITH MEALS FOR 7 DAYS active Not Available Not Available No t Available Vitals Date Recorded Body height Body mass index (BMI) Body weight Oxygen saturation Oxygen saturation in Arterial blood by Pulse oximetry Heart rate Respiratory rate Body temperature Systolic blood pressure Diastolic blood pressure Provider Name and Address Organization Details Last Updated DateTime 175.26 cm 26.6 kg/m2 04456.6 3 g 96 % 96 % 71 /min 18 /min 98.2 [degF] 116 mm[Hg] 73 mm[Hg] JEY Jaramillo [facility] 18:45:40 Social History Question Answer Notes LastModified by Organizat ion Details LastModified Time Tobacco Smoking Status Never Smoker CAITLIN Miranda [facility] 03/01/2023 18:44:04 What Is Your Level Of Alcohol Consumption? None Information not available 03/01/2023 Are You Currently Employed? Yes Information not available 03/01/2023 Have You Had Direct Contact, Or Contact During Intimacy, With Monkeypox Rash, Scabs, Or Body Fluids From A Person With Monkeypox? No Information not available 03/01/2023 Do You Use Any Illicit Or Recreational Drugs? No Information not available 03/01/2023 Have You Recently Traveled Abroad? No Information not available 03/01/2023 Are You Currently In School? No Information not available 03/01/2023 Sex: Unknown Functional Status None recorded. Mental Status None recorded. Family History Relationship Description Onset Age of this Age Resolved Age Notes LastModified by Organization Details LastModified Time Father No current problems or disability Not available 10/2022 18:43:26 Mother No current problems or disability Not available 10/2022 18:43:26 Medical History No medical history recorded. Past Encounters Encounter ID Performer Location Encounter Start Date Encounter Closed Date Diagnosis/Indication Diagnosis SNOMED-CT Code Diagnosis ICD10 Code Diagnosis Note [id number] [address] [place] [address] 05/28/2019 14:40:39 05/28/2019 16:09:24 [id number] [facility] [address] [place] [address] 03/01/2023 18:08:45 03/04/2023 07:29:20 Urethritis 57265146 N34.2 Health Concerns Section Related Observation LastModified by Organization Detai ls LastModified Time None Recorded Concern Status LastModified by Organization Details LastModified Time None Recorded Advance Directives Directive None Recorded Payers Encounter Date Sequence Insurance Name Policy Number Policy Johnson Covered Member ID Johnson Member ID Guarantor Name 03/01/2023 1 [place] [facility] (O) [id number] Tomasa Faulkner [id number] Jaime Wilson 03/01/2023 2 [place] [facility] Jaime Wilson [id number] Jaime Wilson Notes Date Note Type Note Provider Name and Address Organization Details Recorded Time 3 text/html Urinary Problems-MaleReported bypatient.source of patient informationInformation obtained from patient; Patient arrived at Urgent Care ambulatory; learning styles: auditory Location:penis Quality:burning Severity:mild Onset/Timing:worse; gradual Context:not sexually active; no sexual dysfunction; vaginal intercourse;unprotected intercourse Associated Symptoms:no penile lesions/sores; no scrotal lesions/sores; no penile discharge; no flank pain; no jaundice; no blood in the urine; no change in urine appearance; no urine odor; no impotence; no fever/chills; no fatigue; no myalgia;pain during urination Navdeep Villarreal NP [address] [place], [address], [place] - [facility] 03/01/2023 19:58:35
== END 2024-12-08 09:39 | disposition home or self-care (01) ==
LOC: HO.HUSH 08:49
PROVIDERS: Visit Provider Nurse Practitioner Family
DX: N52.9 Male erectile dysfunction, unspecified (principal); Z13.9 Encounter for screening, unspecified
CPT/HCPCS: 99204

== ENCOUNTER → 2024-12-08 08:47 | Outpatient (BNVA) | payer BC, MEDICAID, SELFPAY | PROVIDERS: Visit Provider Nurse Practitioner Family | DX: N52.9 Male erectile dysfunction, unspecified (principal) | CPT/HCPCS: 81003 ==

== ENCOUNTER 2024-12-19 10:08 | Outpatient (REF) | payer BC, MEDICAID, SELFPAY ==
[2024-12-21 10:38] LABS: Follicle Stimulating Hormone 1.7 mIU/mL (1.4-12.8); Lutenizing Hormone 2.1 mIU/mL (1.5-9.3); Prolactin 5.6 ng/mL (2.0-18.0); Sex Hormone Binding Globulin 12 nmol/L (10-50)
[2024-12-25 12:44] LABS: Testosterone, Free 79.1 pg/mL (35.0-155.0); Testosterone, Total 339 ng/dL (250-1100)
[2024-12-31 04:29] LABS: Estradiol Ultra Sensitive 19 pg/mL (< OR = 29)
== END 2024-12-19 10:09 | disposition home or self-care (01) ==
LOC: HO.LAB 10:08
PROVIDERS: Visit Provider Nurse Practitioner Family
DX: E29.1 Testicular hypofunction (principal); N52.9 Male erectile dysfunction, unspecified
CPT/HCPCS: 36415; 82670; 83001; 83002; 84146; 84270; 84402; 84403

== ENCOUNTER 2025-03-17 08:36 | Outpatient (AMB) | payer BC, MEDICAID, SELFPAY ==
--- NOTE | 2025-03-17 08:42 | A.OFFVIS_ITS ---
Intake Visit Reasons: 3m/ labs(set) Intake Note: patient presents today for follow up visit for erectile dysfunction Urology Medication: Tadalafil Blood Thinner:none Antibiotic Allergies:none Accompanied by: Significant Other Allergies No Known Allergies Allergy (Verified 03/17/25 10:14) Medication List - Last Reconciled 03/17/25 by JHONNY Kohli tadalafil (Cialis) 5 mg PO DAILY 90 days HPI Comments Details: Jaime is a very pleasant 34-year-old German-speaking male patient of Dr. Williamson who was accompanied by his at today's office visit and is requesting translation provided through his . He presents to the office today for follow-up. Of note, patient was seen approximately 3 months ago as a as a new patient for erectile dysfunction at which time labs were ordered for further assessment evaluation. These results were reviewed and communicated with the patient and his significant other today. Estradiol: 12/22 19 FSH: 12/22 1.7 LH: 12/22 2.1 Prolactin: 12/22 5.6 Testosterone: 12/22 339 Free testosterone: 12/22 79.1 SHB/25 12 We did discuss borderline low testosterone given patient's age. Patient with a previous history of anabolic steroid use for 3 weeks that was provided to him by his friend. He reports shortly after he started experiencing issues with erectile dysfunction. During last office visit patient was started on low-dose Cialis. In discussion with the patient today he reports this has been extremely effective and feels he has been experiencing no issues with erectile dysfunction however has noted acid reflux and has been taking OTC omeprazole with good effect. We did discuss further treatment options to include trial of stimulation testing with Clomid verses continuing low-dose Cialis daily verses surveillance monitoring. Risks and benefits of these interventions were discussed. He otherwise denies any bothersome urinary issues. He denies urinary urgency, urinary frequency, incontinence, nocturia, hematuria, dysuria, foul smelling urine, changes to urinary stream, flank pain, fever, and or chills. He is happy with his current voiding parameters. In office urinalysis results reviewed with the patient today. We discussed at length anabolic steroid use and potential causes and affects of this disorder/condition. He otherwise denies any previous trauma. [facility] Surgical History History of pterygium History of wisdom tooth extraction Family History Father Hypertension Gout Kidney stones Hernia Mother Osteoarthritis Hypertension Family/Other Substance use disorder Paternal Grandmother Cancer Social History Housing: Apartment Alcohol intake: never Patient Tobacco Use Status: Never used Tobacco e-Cigarette/Vaping Use: Never Used Second Hand Smoke Exposure: No service: No Current occupational status: employed Current occupational exposures/hazards: No Cognitive needs: No Hearing needs: No Vision needs: No Review of Systems Const All systems reviewed & are unremarkable except as noted in HPI and below Physical Exam Const General: cooperative, healthy appearing, comfortable, no acute distress, well developed, alert and awake Orientation/consciousness: patient oriented x3 Limitations: language barrier HEENT Head: Yes normal to inspection, Yes normocephalic and Yes atraumatic Ears: hearing grossly normal bilaterally Eyes General: appearance normal, both eyes and all related structures Neck Neck: Yes normal visual inspection and Yes trachea midline Chest Chest palpation & inspection: normal inspection of the chest Resp Effort & Inspection: normal respiratory effort and able to speak in complete sentences Cardio Rate: regular rate GI Inspection: Yes normal to inspection General: Yes no CVA tenderness Back/Spine/Pelvis Back: no CVA tenderness Skin General skin exam: no rashes or lesions noted Neuro General: patient oriented x3 Extrem General: Yes normal to inspection Psych Appearance: grossly normal and well kempt Mental Status: mental status grossly normal Speech and movement: Normal speech and movement present and Clear speech present Affect: normal affect Attitude: cooperative Thought process: Normal thought process present Thought content: Normal thought content present Insight: Fair insight present (Psych) Judgement: Fair judgement present (Psych) Results AMB Urinalysis, Automated UA Leukoctes 0 Meghan/uL Last Edit by Melony Marcelino MA on 03/17/25 08:57 UA Nitrite Negative Last Edit by Melony Marcelino MA on 03/17/25 08:57 UA Urobilinogen 0.2 mg/dL Last Edit by Melony Marcelino MA on 03/17/25 08:57 UA Protein 0 mg/dL Last Edit by Melony Marcelino MA on 03/17/25 08:57 UA pH 6.0 Last Edit by Melony MarcelinoCALISTA on 03/17/25 08:57 UA Blood 0 Darius/uL Last Edit by Melony MarcelinoCALISTA on 03/17/25 08:57 UA Specific [place] 1.025 Last Edit by Melony MarcelinoCALISTA on 03/17/25 08:57 UA Ketone Negative Last Edit by Melony MarcelinoCALISTA on 03/17/25 08:57 UA Bilirubin 0 mg/dL Last Edit by Melony RylandCALISTA on 03/17/25 08:57 UA Glucose 0 mg/dL Last Edit by Melony MarcelinoCALISTA on 03/17/25 08:57 Results Reviewed Results Reviewed: Laboratory Last Values Urine pH (Auto) 6.0 03/17/25 08:48 Specific [place] (Auto) 1.025 03/17/25 08:48 Urine Protein (Auto) 0 mg/dL 03/17/25 08:48 Glucose (UA)(Auto) 0 mg/dL 03/17/25 08:48 Urine Ketones (Auto) Negative 03/17/25 08:48 Urine Blood (Auto) 0 Darius/uL 03/17/25 08:48 Urine Nitrite (Auto) Negative 03/17/25 08:48 Urine Bilirubin (Auto) 0 mg/dL 03/17/25 08:48 Urine Urobilinogen (Auto) 0.2 mg/dL 03/17/25 08:48 Leukocyte Esterase (Auto) 0 Meghan/uL 03/17/25 08:48 Assessment & Plan Assessment & Plan (1) Erectile dysfunction: Code(s): N52.9 - Male erectile dysfunction, unspecified Category: Medical Plan In office urinalysis results with the patient today; as noted above. Recent estradiol, FSH, LH, prolactin, testosterone, free testosterone, and SHBG results were reviewed with the patient and his today; as noted above. We did discussed further treatment options and risks and benefits of these t reatment options. Will continue with low-dose Cialis as discussed. He currently denies any bothersome urinary issues or concerns. He reports be happy with current voiding parameters. We discussed anabolic steroid use; potential causes and affects. All questions were answered Will continue with surveillance monitoring. Will obtain LH, estradiol, FSH, SHBG, prolactin, testosterone, and free t estosterone in 6 months. Follow-up in 6 months with labs to be completed prior; or sooner with any issues, concerns, and or questions. Orders: Orders Lutenizing Hormone 6 Months N52.9 - Male erectile dysfunction, unspecified Estradiol Ultra Sensitive 6 Months E29.1 - Testicular hypofunction, N52.9 - Male erectile dysfunction, unspecified Follicle Stimulating Hormone 6 Months N52.9 - Male erectile dysfunction, unspecified Sex Hormone Binding Globulin 6 Months E29.1 - Testicular hypofunction, N52.9 - Male erectile dysfunction, unspecified AMB Urinalysis Automated Today Z13.9 - Encounter for screening, unspecified Prolactin 6 Months N52.9 - Male erectile dysfunction, unspecified Testosterone, Free/Total 6 Months N52.9 - Male erectile dysfunction, unspecified Medications: Refilled tadalafil (Cialis) [id number] [facility] [id number] Member [id number] 5 mg PO DAILY 90 tabs 3RF 90 days N52.9 - Male erectile dysfunction, unspecified Patient Instructions: The patient had an opportunity to ask questions regarding the treatment plan. All questions were answered. Physical exam, labs, and imaging were discussed and reviewed in detail. As well as risks, benefits, and discussion of treatment choices. No major barriers to understanding were identified. The patient expressed understanding and agreement with the above treatment plan. The patient was made aware they should contact our office by phone for worsening of their current condition, the appearance of new symptoms, or with any questions or concerns. Compliance is encouraged with any medications and follow up testing that is ordered. It is a privilege to be allowed the opportunity to participate in? your urological care.? Again, if you have any questions or concerns If you have any questions or concerns please do not hesitate to contact me. The office is [phone]. This note is constructed using voice recognition software. While every effort has been made to ensure accuracy credit collections specialist errors may have been included. Yours sincerely, JHONNY Kohli Coding Level of Care Code Est Pt Level 3 (26910) Diagnoses Erectile dysfunction N52.9
--- OUTSIDE RECORDS SUMMARY | 2025-03-17 09:01 | XMS_ITS | Data Portability ---
Author Organization [facility], [address] Address [address] [place] [address] Assessment No assessment recorded. Plan of Treatment Reminders Order Date Submit Date Provider Last Modified By Organization Details Last Modified Time Details Appointments None recorded. Lab urinalysis, dipstick 2022 023 [email or web address] [facility], [address] [place] [address], [address], 19:58:07 chlamydia trachomatis + neisseria gonorrhoeae + trichomonas vaginalis DNA panel, ANN+probe, unspecified specimen 2022 023 [place], [address] [place] [address], [place], [address], 10:06:55 Referral None recorded. Procedures None recorded. Surgeries None recorded. Imaging None recorded. Medication Orders ceftriaxone 250 mg solution for injection 2022 023 [email or web address] Not available 19:58:07 doxycycline monohydrate 100 mg tablet 2022 023 [email or web address] [id number], [address] [facility], [place], [address], 19:58:07 Patient TargetsNo targets recorded. Patient Instructions Encounter Date Encounter Id Patient Instructions Last Modified By Organization Details Last Modified Time 03/01/2023 [id number] If your doctor prescribed antibiotics, take them as directed. Do not stop taking them just because you feel better. You need to take the full course of antibiotics. Take an [id number]-[id number] pain medicine, such as acetaminophen (Tylenol), ibuprofen [...] VE negati ve abnormal Not Available [facility] ([facility]) [address] [place], [address], 03/05/2023 10:06:55 03/01/20 23 03/05/2023 CT, NG, TRICH VAG BY ANN gonococcus by ANN NEGATI VE negati ve Not Available [facility] ([facility]) [address] [place], [address], 03/05/2023 10:06:55 03/01/20 23 03/05/2023 CT, NG, TRICH VAG BY ANN trich vag by ANN NEGATI VE negati ve Not Available [facility] ([facility]) [address] [facility], [place], [address], 03/05/2023 10:06:55 03/01/2003/01/2023 urina lysis , dipst ick Unknown Analyte Normal = light yellow Not Available 2099jamil [address], [place], [address], 03/01/2023 19:37:31 03/01/2003/01/2023 urina lysis , dipst ick Unknown Analyte Normal = clear Not Available [address] [place] [address], [place], [address], 03/01/2023 19:37:31 03/01/20 23 03/01/2023 urina lysis , dipst ick Unknown Analyte Normal = negati ve Not Available [address] [place] [address], [place], [address], 03/01/2023 19:37:31 03/01/2003/01/2023 urina lysis , dipst ick Unknown Analyte Normal = Negati ve Not Available [address] [place] [address], [place], [address], 03/01/2023 19:37:31 03/01/2003/01/2023 urina lysis , dipst ick Unknown Analyte Normal = Negati ve Not Available [address] [place] [address], [place], [address], 03/01/2023 19:37:31 03/01/2003/01/2023 urina lysis , dipst ick Unknown Analyte Normal = 1.010, 1.015, 1.020 Not Available [address] [place] [address], [place], [place], [address], 03/01/2023 19:37:31 03/01/20 23 03/01/2023 urina lysis , dipst ick Unknown Analyte Normal = Negati ve Not Available 2099jamil stone [address], [place], [address], 03/01/2023 19:37:31 03/01/20 23 03/01/2023 urina lysis , dipst ick Unknown Analyte Normal = 6.5, 7.0, 7.5, 8.0 Not Available 2099jamil [address], [place], [address], 03/01/2023 19:37:31 03/01/2003/01/2023 urina lysis , dipst ick Unknown Analyte Normal = Negati ve Not Available [facility] [address], [place], [address], 03/01/2023 19:37:31 03/01/20 23 03/01/2023 urina lysis , dipst ick Unknown Analyte Normal = 0.2, 1.0 Not Available 2099jamil [address], [place], [address], 03/01/2023 19:37:31 03/01/20 23 03/01/2023 urina lysis , dipst ick Unknown Analyte Normal = Negati ve Not Available 2099jamil [address], [place], [address], 03/01/2023 19:37:31 03/01/20 23 03/01/2023 urina lysis , dipst ick Unknown Analyte Normal = Negati ve Not Available [facility] [address], [place], [address], 03/01/2023 19:37:31 03/01/20 23 03/01/2023 urina lysis , dipst ick Unknown Analyte Light Yellow Not Available [address] [address], [place], [address], 03/01/2023 19:37:31 03/01/2003/01/2023 urina lysis , dipst ick Unknown Analyte Clear Not Available [facility] [address], [place], [address], 03/01/2023 19:37:31 03/01/20 23 03/01/2023 urina lysis , dipst ick Unknown Analyte Negati ve Not Available jamil stone [address], [place], [address], 03/01/2023 19:37:31 03/01/20 23 03/01/2023 urina lysis , dipst ick Unknown Analyte Negati ve Not Available jamil stone [address], [place], [address], 03/01/2023 19:37:31 03/01/20 23 03/01/2023 urina lysis , dipst ick Unknown Analyte Trace- lysed Not Available jamil stone [address], [place], [address], 03/01/2023 19:37:31 03/01/20 23 03/01/2023 urina lysis , dipst ick Unknown Analyte Negati ve Not Available jamil stone [address], [place], [address], 03/01/2023 19:37:31 03/01/20 23 03/01/2023 urina lysis , dipst ick Unknown Analyte 0.2 E.U./d L Not Available jamil stone [address], [place], [address], 03/01/2023 19:37:31 03/01/20 23 03/01/2023 urina lysis , dipst ick Unknown Analyte Negati ve Not Available jamil stone [address] [place], [address], 03/01/2023 19:37:31 03/01/2003/01/2023 urina lysis , dipst ick Unknown Analyte Negati ve Not Available [address]il stone [address] [place], [address], 03/01/2023 19:37:31 03/01/20 23 03/01/2023 urina lysis , dipst ick Unknown Analyte 1.025 Not Available [address]99 [address] [place], [address], 03/01/2023 19:37:31 03/01/2003/01/2023 urina lysis , dipst ick Unknown Analyte 5.5 Not Available [address] [place], [address], 03/01/2023 19:37:31 Result Notes None recorded. Problems [...] day. 2022 active administe red by Navdeep Villarreal NP-C. SCKAMI. Not Available Not Available Not [...] Last Updated DateTime 175.26 cm 26.6 kg/m2 01444.6 3 g 96 % 96 % 71 /min 18 /min 98.2 [degF] 116 mm[Hg] 73 mm[Hg] JEY VALERIE TUCKER - [facility] 18:45:40 Social History Question Answer Notes LastModified by [employer] Details LastModified Time Tobacco Smoking Status Never Smoker JEY CAITLIN Mireles [facility] 03/01/2023 18:44:04 Have You Had Direct Contact, Or Contact During Intimacy, With Monkeypox Rash, Scabs, Or Body Fluids From A Person With Monkeypox? No Information not available 03/01/2023 Have You Recently Traveled Abroad? No Information not available 03/01/2023 Are You Currently In School? No Information not available 03/01/2023 Sex: Unknown Functional Status Question Answer Note LastModified by [employer] Details LastModified Time Do you use any illicit or recreational drugs? No Information not available 03/01/2023 What is your level of alcohol consumption? None Information not available 03/01/2023 Are you currently employed? Yes Information not available 03/01/2023 Mental Status None recorded. Family History Relationship [...] SNOMED-CT Code Diagnosis ICD10 Code Diagnosis Note [id number] [facility] [address] [address] 05/28/2019 14:40:39 05/28/2019 16:09:24 [id number] Nav[place]ar[place] [address]_[place] [facility] [address] [place] [address] 03/01/2023 18:08:45 03/04/2023 07:29:20 Urethritis [id number] N34.2 Health Concerns Section Related Observation LastModified by Organization Detai ls LastModified Time None Recorded Concern Status LastModified by Organization Details LastModified Time None Recorded Advance Directives Directive None Recorded Payers Insurance Date Sequence Insurance Name Policy Number Policy Johnson Covered Member ID Johnson Member ID Guarantor Name 03/01/2023 1 [place] [facility] (O) [id number] Tomasa Faulkner [id number] Jaime Wilson 03/01/2023 2 [place] [facility] Jaime Wilson [id number] Jaime Wilson Notes Date Note Type Note [...] Navdeep Villarreal NP [address] [place], [address], [place] - [facility] 03/01/2023 19:58:35
== END 2025-03-17 09:35 | disposition home or self-care (01) ==
LOC: HO.HUSH 08:37
PROVIDERS: Visit Provider Nurse Practitioner Family
DX: N52.9 Male erectile dysfunction, unspecified (principal); Z13.9 Encounter for screening, unspecified
CPT/HCPCS: 99213

== ENCOUNTER → 2025-03-17 08:36 | Outpatient (BNVA) | payer BC, MEDICAID, SELFPAY | PROVIDERS: Visit Provider Nurse Practitioner Family | DX: E29.1 Testicular hypofunction (principal); N52.9 Male erectile dysfunction, unspecified | CPT/HCPCS: 81003 ==

== ENCOUNTER 2025-09-13 12:19 | Outpatient (REF) | payer BC, MEDICAID, SELFPAY ==
[2025-09-14 16:14] LABS: Follicle Stimulating Hormone 3.1 mIU/mL (1.4-12.8)
== END 2025-09-13 12:20 | disposition home or self-care (01) ==
LOC: HO.LAB 12:19
PROVIDERS: Visit Provider Nurse Practitioner Family
DX: E29.1 Testicular hypofunction (principal); N52.9 Male erectile dysfunction, unspecified
CPT/HCPCS: 36415; 82670; 83001; 83002; 84146; 84270; 84402; 84403